=== PATIENT | female | born 1955 | race Caucasian/White ===

== ENCOUNTER 2017-12-24 09:00 | Day surgery (SDC) | payer MEDICARE ==
[~2017-12-24 09:00] MED LIST: CEFAZOLIN 2 GM-D5W BAG** 2 GM/50 ML ML IV SCH; Lactated Ringers 1,000 ML IV SCH
--- NOTE | 2017-12-26 07:29 | HP ---
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 She was sent to an oncologist who felt she had a moderate-sized mass. He prefers to proceed with surgical lumpectomy and [place] lymph node biopsy first rather than neoadjuvant treatment per his choice. Therefore the patient has been discussed the options of breast conserving therapy versus lumpectomy with [place] lymph node biopsy likely followed by some adjuvant radiation treatment and [place] lymph node biopsy. I had a long discussion with the patient and the patient prefers attempt at breast conservative therapy. PAST MEDICAL HISTORY: Diabetes, stroke, hypertension, chronic obstructive pulmonary disease, reflux. She had some throat cancer in the past. Hyperthyroidism. PAST SURGICAL HISTORY: Neck surgery in the past. She had core biopsy recently. MEDICATIONS: Amlodipine, aspirin, gabapentin, atorvastatin, clopidogrel, clotrimazole, docusate sodium, ezetimibe, famotidine, gabapentin, ibuprofen, iron complex, Keppra, Lioresal, losartan, sertraline, metformin, metoprolol, [place], Symbicort, Synthroid, Zoloft. ALLERGIES: LYRICA. FAMILY HISTORY: Heart disease, diabetes, arthritis. Negative for breast cancer. SOCIAL HISTORY: No smoking or alcohol abuse currently. REVIEW OF SYSTEMS: Twelve systems reviewed per admission assessment. Pertinent for the breast mass recently diagnosed with breast cancer. No chronic chest pain or palpitations. PHYSICAL EXAMINATION: GENERAL: No acute distress. HEENT: Sclerae nonicteric. NECK: No JVD. CHEST: Equal excursion, nonlabored breathing. Breath sounds symmetrical. CVS: Regular rate and rhythm. BREAST: Left breast palpable lump upper aspect of the left breast. It is unclear if she has any prominent nodes. ABDOMEN: Soft, nontender. EXTREMITIES: No significant edema. No cyanosis. NEURO: Alert, oriented, moving extremities symmetrically. IMPRESSION: Left breast cancer. She was referred per Dr. Zuniga who feels she would benefit from surgery first rather than neoadjuvant therapy to shrink this tumor down. We had a long discussion mastectomy versus breast conservative therapy. She prefers to proceed with breast conserving therapy with [place] lymph node biopsy. Will proceed with left breast lumpectomy with [place] lymph node biopsy with radioscintigraphy possible blue dye. Risks and benefits explained in detail including but not limited to bleeding or infection, risk of hematoma or seroma formation, the fact given the large size of the mass she will have some contour changes of the breast. Risk of infection possibly requiring packing, risk of aches, pains, burning or numbness possible rodent exterminator or chronic in nature. Risk of involved margins possibly requiring other procedures possibly even require conversion to mastectomy at a later date or perioperative radiation treatment. General risk of anesthesia, deep venous thrombosis, pulmonary embolism, pneumonia. Risk of [place] lymph node biopsy, risk of possible need for axillary completion dissection. Risk of hematoma or seroma, lymphocele formation, risk of aches, pains, burning or numbness or weakness of her upper extremity or shoulder. Risk of winged blade possible transient or rodent exterminator. Risk of lymphedema. Risk of progression of disease. General risk of anesthesia, deep venous thrombosis, pulmonary embolism, pneumonia. General risk of aches, pains possibly chronic in nature. She also understands with breast conservative therapy likely they will recommend radiation treatment afterwards given final path. She prefers to proceed with right breast lumpectomy with [place] lymph node biopsy as an outpatient.
== END 2017-12-24 10:00 | disposition home or self-care (01) ==
LOC: SDC 09:00
PROVIDERS: ATTEND Surgery
DX: C50.912 Malignant neoplasm of unspecified site of left female breast (principal); E11.9 Type 2 diabetes mellitus without complications; Z86.73 Personal history of transient ischemic attack (TIA), and cerebral infarction without residual deficits; I10 Essential (primary) hypertension; J44.9 Chronic obstructive pulmonary disease, unspecified; K21.9 Gastro-esophageal reflux disease without esophagitis; Z85.819 Personal history of malignant neoplasm of unspecified site of lip, oral cavity, and pharynx; E05.90 Thyrotoxicosis, unspecified without thyrotoxic crisis or storm; Z53.8 Procedure and treatment not carried out for other reasons

== ENCOUNTER 2018-01-21 08:18 | Day surgery (SDC) | payer MEDICARE ==
[~2018-01-21 08:18] MED LIST changes: -CEFAZOLIN 2 GM-D5W BAG** 2 GM/50 ML ML IV SCH; +Lactated Ringers 1,000 ML IV ONE; -Lactated Ringers 1,000 ML IV SCH; +Sensorcaine 0.25% 10 ML ONE
[2018-01-21] MEDS ORDERED: SUBLIMAZE 100 MCG/2 ML IV ONE (08:19)
[2018-01-21] MEDS ORDERED: DIPRIVAN 200 MG/20 ML IV ONE (08:19)
[2018-01-21] MEDS ORDERED: Versed 2 MG/2 ML Injection IV ONE (08:19)
[2018-01-21] MEDS ORDERED: CEFAZOLIN 2 GM-D5W BAG** 2 GM/50 ML ML IV SCH (08:30)
[2018-01-21] MEDS ORDERED: Lactated Ringers 1,000 ML IV SCH (08:30)
--- NOTE | 2018-01-21 08:57 | HP ---
DATE OF SURGERY: 01/21/2018 HISTORY OF PRESENT ILLNESS: The patient is a 62 year-old with history of breast cancer. She is scheduled for left breast lumpectomy, [place] lymph node biopsy. She had been previously scheduled and apparently did not show up on her surgery date. She had some transportation issues. PAST MEDICAL HISTORY: Breast cancer. Stroke. Diabetes. PAST SURGICAL HISTORY: Neck surgery in the past. Left breast cold biopsy which demonstrated differentiated ductal carcinoma. MEDICATIONS: Amlodipine, aspirin, atorvastatin, clopidogrel, clotrimazole, ezetimibe, famotidine, gabapentin, ibuprofen, iron complex, Keppra, Lioresal, losartan, metformin, metoprolol, [place], Symbicort, Synthroid, Zoloft. ALLERGIES: LYRICA. FAMILY HISTORY: Heart disease, hypertension, diabetes, hypothyroidism, arthritis. SOCIAL HISTORY: No smoking or alcohol abuse currently. Quit smoking ten years ago. She used to smoke three packs a day for 30-some years. REVIEW OF SYSTEMS: Twelve systems reviewed per admission assessment. No chest pain or palpitations other systems negative or noncontributory as above and per preadmission questionnaire. PHYSICAL EXAMINATION: GENERAL: No acute distress. HEENT: Sclerae nonicteric. NECK: No JVD. CHEST: Equal excursion, nonlabored breathing. Breath sounds symmetrical. CVS: Regular rate and rhythm. BREAST: Left breast palpable lump upper aspect of the left breast. ABDOMEN: Soft, nontender. EXTREMITIES: No significant edema. No cyanosis. NEURO: Alert, oriented, moving extremities symmetrically. IMPRESSION: Left breast cancer. I feel the patient is a candidate. She has been discussed the options of pretreatment, neoadjuvant therapy by Dr. Zuniga but he felt she would benefit from surgery first. Proceed with left breast lumpectomy. She had been discussed options of mastectomy versus breast conservative therapy. She prefers to proceed with breast conservative therapy, will proceed with left breast lumpectomy, [place] lymph node biopsy, possible completion axillary dissection as an outpatient. Risks and benefits explained in detail but not limited to bleeding, infection, risk of hematoma or seroma formation, risk of infection possibly requiring packing, risk of contour changes of the breast, possibility of involved margins possibly requiring wider excision even at a later date, general risk of lymph node sampling, risk of bleeding, infection, hematoma or seroma formation, lymphocele formation, lymph edema, risk of sensory or motor nerve irritation or scar formation, risk of numbness, weakness of her shoulder, back, scapula or upper extremities but not limited to, general risk of aches and pains possible chronic in nature. She understands all the above but not limited to, will proceed with left breast lumpectomy with [place] lymph node biopsy possible axillary dissection pending operative findings as an outpatient.
[2018-01-21] MEDS ORDERED: CEFAZOLIN 2 GM-D5W BAG** 2 GM/50 ML ML IV ONE (10:06)
--- NOTE | 2018-01-21 13:13 | XRAY ---
Indication: [place] node evaluation. Left breast cancer. 4 subcutaneous injections of technetium 99 sulfur colloid totaling 568 Ci was performed around the left breast areola. Warm compress applied with delayed anterior and lateral imaging performed out to 90 minutes. Normal radiopharmaceutical activity around the injection sites. No focus of abnormal radiopharmaceutical activity in the left breast or left axilla within the allotted exam time. Impression: Left breast nuclear medicine sentinel node localization is negative. Patient was taken to surgery with hand-held probe if needed.
[2018-01-21] MEDS ORDERED: SUBLIMAZE 100 MCG/2 ML ONE (15:03)
[2018-01-21 16:51] VITALS: BP 158/78; PULSE 83; O2SAT 93
--- NOTE | 2018-01-22 07:55 | OP ---
SURGERY DATE/TIME: 01/21/2018 PREOPERATIVE DIAGNOSIS: Left breast cancer. POSTOPERATIVE DIAGNOSIS: Left breast cancer. PROCEDURE: Left breast lumpectomy (partial mastectomy), [place] lymph node biopsy, radioscintigraphy left axilla. SURGEON: Dr. Vik Mckeon. SUGAR COATING HAND: Martin Garcia, Medical Student III. ANESTHESIA: General. ESTIMATED BLOOD LOSS: Minimal. INDICATIONS: As noted above. Risks and benefits explained in detail and not limited to and consent obtained. The site had been confirmed and marked in the preoperative holding area. DESCRIPTION OF PROCEDURE AND FINDINGS: The patient is taken to the operating room. General anesthesia introduced. Left axilla and upper extremity prepped and draped in usual sterile fashion. It should be noted she had quite moderately large upper left breast mass quite indurated. However the oncologist did not feel she would benefit from neoadjuvant therapy to shrink it down first. He insisted on us proceeding with surgical intervention first. The patient was apprised of the risks of involved margins possibly requiring other procedures or other treatment. At this point breast, axilla and upper extremity prepped and draped in usual sterile fashion. Marking out to normal skin around the area. Dissection carried down to the chest wall out around normal appearing subcu fat and breast fat around this indurated palpable mass. Dissection is carried down to chest wall dissecting off the chest wall. Specimen marked with a double tie at 3:00 and a single tie at 6:00. Otherwise good hemostasis noted. What appeared to be a little bit of increased uptake in the left axilla therefore the breast wound deeper parenchyma closed in layers, deep and superficial parenchyma closed with 3-0 Vicryl. Superficial subcu closed with 3-0 Vicryl. Skin closed with 4-0 Vicryl. Steri-Strips and sterile dressing applied at the end of the procedure. Attention was turned to the axilla. Again the probe was used. Clean gloves and instruments were used. Probe seemed to show some increased uptake. A transverse incision made left axilla. Dissection carried down to isolated fat pad. She appeared to have several soft benign appearing nodes. Unclear whether there is a weak uptake in these nodes or not. They were carefully with a combination of clamping, Vicryl ties and Ligaclips carefully in the lymphatics and small vessels going in and out of the axillary fat going to the soft small nodes carefully dissected and passed off. There was one node that gave a little bit higher uptake of 25, the rest giving anywhere from 2 to 5 to 8. The rest of the axilla just kind of gave around 3 to 4 or so. There did not appear to be any clinically palpable suspicious nodes remaining. Good hemostasis noted. The wound was irrigated out. CARLOS drain placed through inferior stab wound and secured with PDS suture and placed to bulb suction. Axillary fat pad closed with 3-0 Vicryl. Superficial subcu closed with 3-0 Vicryl. Skin closed with 4-0 Vicryl. The visible intercostal brachial branches were protected. Otherwise all dissection was carried directly on the [place] tissue. The patient tolerated the procedure well. There were no immediate complications. Findings discussed with the family out in the waiting area.
== END 2018-01-21 16:40 | disposition home or self-care (01) ==
LOC: SDC 08:18
PROVIDERS: ATTEND Surgery
DX: C50.912 Malignant neoplasm of unspecified site of left female breast (principal); E11.9 Type 2 diabetes mellitus without complications; Z86.73 Personal history of transient ischemic attack (TIA), and cerebral infarction without residual deficits; Z79.4 Long term (current) use of insulin; Z79.899 Other long term (current) drug therapy; Z87.891 Personal history of nicotine dependence
CPT/HCPCS: 78195; 82962; A9541; J0690; J2250; J2704; J3010